=== PATIENT | male | born 1975 | race African-American/Black ===

== ENCOUNTER 2020-11-21 07:36 | Day surgery (SDC) | payer BC ==
[2020-11-18 17:44] VITALS: BMI 27.7
[2020-11-21] MEDS ORDERED: PROPOFOL 20 ML ONE ×4 (07:54)
[2020-11-21] MEDS ORDERED: LIDOCAINE HCL/PF 2% SDV 5ML VIAL ONE (07:54)
[2020-11-21 08:31] VITALS: TEMP 98.2
[2020-11-21 09:04] VITALS: BP 110/62; PULSE 74
== END 2020-11-21 09:10 | disposition home or self-care (01) ==
LOC: FASU-ENDO 07:36
PROVIDERS: ATTEND Internal Medicine Gastroenterology
PROC: 0DB68ZX Excision of Stomach, Via Natural or Artificial Opening Endoscopic, Diagnostic (ICD-10-PCS; 2020-11-21)
PROC: 0DB98ZX Excision of Duodenum, Via Natural or Artificial Opening Endoscopic, Diagnostic (ICD-10-PCS; principal; 2020-11-21 08:13)
DX: K29.50 Unspecified chronic gastritis without bleeding (principal); R10.13 Epigastric pain
CPT/HCPCS: 88305-TC; 88342-TC